=== PATIENT | male | born 1930 | race Caucasian/White ===

== ENCOUNTER 2017-01-28 21:09 | Inpatient (IN) | payer MEDICARE, MEDICAID ==
[~2017-01-28] VITALS: Ht 165.1 cm; Wt 51.7 kg
--- NOTE | 2017-01-28 21:22 | NUR ---
PT BB RA FROM HOME; SOB AND DISTENDED ABD X 3 DAYS. PT AOX4 RR EVEN AND UNLABORED. NO SOB NOTED. NAD NOTED. NO NVD AT THIS TIME. PT NOT DIAPHORETIC. PT GOWNED AND PLACED ON MONITOR. DR. WHITFIELD AT BEDSIDE FOR EVAL. PER RA PLACED IV ON LEFT FA 18G
[2017-01-28 21:25] LABS: BASOPHILS # (AUTO) 0.1 /CMM (0.0-0.2); BASOPHILS % (AUTO) 1.3 % (0.0-2.0); EOSINOPHILS % (AUTO) 0.3 % (0.0-6.0); HEMATOCRIT 31 % (39-51); HEMOGLOBIN 10.7 g/dL (13.5-17.5); LYMPHOCYTES # (AUTO) 0.4 /CMM (0.8-4.8); LYMPHOCYTES % (AUTO) 5.7 % (20.0-44.0); MEAN CORPUSCULAR HEMOGLOBIN 35 PG (26.0-33.0); MEAN CORPUSCULAR HGB CONC 34 g/dl (31.0-36.0); MEAN CORPUSCULAR VOLUME 103 fL (80-96); MONOCYTES # (AUTO) 0.4 /CMM (0.1-1.30); MONOCYTES % (AUTO) 5.3 % (2.0-12.0); NEUTROPHILS % (AUTO) 87.4 % (43.0-81.0); PLATELET COUNT (AUTO) 158 /CMM (150-450); RDW COEFFICIENT OF VARIATION 16.5 (11.5-15.0); RED BLOOD CELL COUNT(AUTO) 3.02 MIL/uL (4.5-6.0); WHITE BLOOD COUNT (AUTO) 6.9 K/uL (4.3-11.0)
--- NOTE | 2017-01-28 21:26 | NUR ---
XRAY AT BEDSIDE FOR EVAL.
[2017-01-28 21:38] LABS: INR 1.97 (0.87-1.13); PROTHROMBIN TIME 21.2 SECS (9.5-12.7)
[2017-01-28 21:43] LABS: TROPONIN I 0.139 ng/mL (0.00-0.056)
--- NOTE | 2017-01-28 21:46 | NUR ---
FAMILY AT BEDSIDE
[2017-01-28 21:47] LABS: ALANINE AMINOTRANSFERASE 22 U/L (12-78); ALBUMIN 4.1 g/dL (3.4-5.0); ALKALINE PHOSPHATASE 39 U/L (46-116); ASPARTATE AMINOTRANSFERASE 35 U/L (15-37); B-TYPE NATRIURETIC PEPTIDE 30354 PG/ML (0-125); BILIRUBIN,DIRECT 0.4 mg/dL (0.0-0.2); BILIRUBIN,TOTAL 1.1 mg/dL (0.2-1.0); CALCIUM, SERUM 10.8 mg/dL (8.5-10.1); CARBON DIOXIDE 29 mmol/L (21-32); CHLORIDE 89 mmol/L (98-107); CREATININE 2.5 mg/dL (0.6-1.3); GLUCOSE 115 mg/dL (74-106); SODIUM SERUM 123 mmol/L (136-145); TOTAL PROTEIN, SERUM 7.5 g/dL (6.4-8.2)
[2017-01-28 21:51] LABS: POTASSIUM 6.3 mmol/L (3.5-5.1); UREA NITROGEN, BLOOD 116 mg/dL (7-18)
--- NOTE | 2017-01-28 22:08 | NUR ---
DR. COREAS AT BEDSIDE FOR EVAL.
--- NOTE | 2017-01-28 22:15 | NUR ---
PAGED DR BRITO FOR PANEL ADMISSION
[2017-01-28] MEDS ORDERED: ASPIRIN 325 MG TABLET ONE (22:17)
[2017-01-28] MEDS ORDERED: SODIUM POLYSTYRENE SULFONATE 15 G/60 ML BOTTLE ONE (22:17)
[2017-01-28] MEDS ORDERED: CALCIUM CHLORIDE 1,000 MG/10 ML DISP.SYRIN ONE (22:18)
[2017-01-28] MEDS ORDERED: INSULIN REGULAR, HUMAN 100 UNIT/ML 10 ML VIAL ONE (22:19)
[2017-01-28] MEDS ORDERED: DEXTROSE 50%-WATER 50 ML DISP.SYRIN ONE (22:19)
--- NOTE | 2017-01-28 22:20 | NUR ---
CALLED NURSING SCIENTIFIC MANAGER FOR TELE BED
[2017-01-28] MEDS ORDERED: SODIUM BICARBONATE SYR 50 MEQ/50 ML DISP.SYRIN ONE (22:27)
[2017-01-28] MEDS ORDERED: SODIUM POLYSTYRENE SULFONATE 15 G/60 ML BOTTLE PO ONE (22:30)
[2017-01-28] MEDS ORDERED: DEXTROSE 50%-WATER 50 ML DISP.SYRIN IV ONE (22:30)
[2017-01-28] MEDS ORDERED: ASPIRIN 325 MG TABLET PO ONE (22:30)
[2017-01-28] MEDS ORDERED: CALCIUM CHLORIDE 1,000 MG/10 ML DISP.SYRIN IV ONE (22:30)
[2017-01-28] MEDS ORDERED: ALBUTEROL FS 2.5 MG/3 ML VIAL.NEB NEB ONE (22:30)
[2017-01-28] MEDS ORDERED: FUROSEMIDE 40 MG/4 ML VIAL IV ONE (22:30)
[2017-01-28] MEDS ORDERED: SODIUM BICARBONATE SYR 50 MEQ/50 ML DISP.SYRIN IV ONE (22:30)
[2017-01-28] MEDS ORDERED: INSULIN REGULAR, HUMAN 100 UNIT/ML 10 ML VIAL IV ONE (22:30)
[2017-01-28] MEDS ORDERED: FUROSEMIDE 40 MG/4 ML VIAL ONE (22:34)
--- NOTE | 2017-01-28 22:35 | NUR ---
Regular Insulin 5 units IV verified with Bill ETIENNE.
[2017-01-28] MEDS ORDERED: MAGNESIUM HYDROXIDE 30 ML UDC PO PRN (23:00)
[2017-01-28] MEDS ORDERED: ACETAMINOPHEN 325 MG TABLET PO PRN (23:00)
[2017-01-28] MEDS ORDERED: HYDROCODONE/APAP 5/325MG 1 EACH TABLET PO PRN (23:00)
[2017-01-28] MEDS ORDERED: Z GUARD REMEDY 2 OZ OINT TP PRN (23:00)
[2017-01-28] MEDS ORDERED: ONDANSETRON HCL/PF 4 MG/2 ML VIAL IVP PRN (23:00)
[2017-01-28] MEDS ORDERED: MAG HYDROX/AL HYDROX/SIMETH 30 ML UDC PO PRN (23:00)
--- NOTE | 2017-01-28 23:02 | NUR ---
REPORT GIVEN TO JAIMIE PADILLA FOR TELE BED 324
[2017-01-28] MEDS ORDERED: ALBUTEROL FS 2.5 MG/3 ML VIAL.NEB ONE (23:10)
--- NOTE | 2017-01-28 23:18 | NUR ---
RT AT BEDSIDE FOR BREATHING TX.
--- NOTE | 2017-01-29 00:05 | NUR ---
MS-RN: ADMISSION NOTES RECEIVED PT FROM ER VIA HOSPITAL BED. NO S/S OR COMPLAINTS OF PAIN AT THIS TIME. PATIENT IS DISPLAYING NO S/S OF APPARENT DISTRESS AT THIS TIME. PATIENT BREATHING IS EVEN AND UNLABORED. NO SOB. PATIENT IS ALERT AND ORIENTED X4. IV ON LEFT FOREARM #18 PATENT AND INTACT. FLUSHING WELL WITH NO S/S OF INFILTRATION. PATIENT BELONGINGS LIST, AND SKIN ASSESSMENT HAS BEEN COMPLETED. PATIENT ORIENTED TO ROOM, FLOOR AND STAFF ALL QUESTIONS ANSWERED. PATIENT EDUCATED ON THE USE OF THE CALL LIGHT. PATIENT BED IN LOW AND LOCKED POSITION, SIDERAILS UPX2, CALL LIGHT WITHIN REACH. WILL CONTINUE TO MONITOR FOR SAFETY.
[2017-01-29] MEDS ORDERED: HYDROCODONE/APAP 5/325MG 1 EACH TABLET ONE (00:51)
[2017-01-29] MEDS ORDERED: ZOLPIDEM TARTRATE 5 MG TABLET ONE (02:11)
[2017-01-29] MEDS: ZOLPIDEM TARTRATE 5 MG TABLET PO PRN (02:17)
[2017-01-29 02:58] VITALS: BP 117/61
[2017-01-29 03:48] LABS: EOSINOPHILS % (AUTO) 0.2 % (0.0-6.0); HEMATOCRIT 31 % (39-51); HEMOGLOBIN 10.6 g/dL (13.5-17.5); LYMPHOCYTES # (AUTO) 0.3 /CMM (0.8-4.8); LYMPHOCYTES % (AUTO) 5.2 % (20.0-44.0); MEAN CORPUSCULAR HEMOGLOBIN 36 PG (26.0-33.0); MEAN CORPUSCULAR HGB CONC 34 g/dl (31.0-36.0); MEAN CORPUSCULAR VOLUME 104 fL (80-96); MONOCYTES # (AUTO) 0.4 /CMM (0.1-1.30); MONOCYTES % (AUTO) 6.1 % (2.0-12.0); NEUTROPHILS # (AUTO) 5.5 /CMM (1.8-8.9); NEUTROPHILS % (AUTO) 88.5 % (43.0-81.0); PLATELET COUNT (AUTO) 150 /CMM (150-450); RED BLOOD CELL COUNT(AUTO) 2.97 MIL/uL (4.5-6.0); WHITE BLOOD COUNT (AUTO) 6.2 K/uL (4.3-11.0)
[2017-01-29 04:02] LABS: CARBON DIOXIDE 32 mmol/L (21-32); CHLORIDE 90 mmol/L (98-107); CREATININE 2.6 mg/dL (0.6-1.3); GLUCOSE 108 mg/dL (74-106); MAGNESIUM 3.3 mg/dL (1.8-2.4); PHOSPHORUS 4.3 mg/dL (2.5-4.9); POTASSIUM 5.3 mmol/L (3.5-5.1); SODIUM SERUM 129 mmol/L (136-145)
[2017-01-29 04:05] LABS: UREA NITROGEN, BLOOD 112 mg/dL (7-18)
[2017-01-29 04:30] LABS: INR 1.89 (0.87-1.13); PROTHROMBIN TIME 21.1 SECS (9.5-12.7)
[2017-01-29] MEDS ORDERED: NITROGLYCERIN PACKET 1 GM PACKET ONE (05:07)
[2017-01-29] MEDS: NITROGLYCERIN PACKET 1 GM PACKET TOP SCH ×3 (05:26→21:00)
--- NOTE | 2017-01-29 06:20 | NUR ---
TELE CLOSING NOTES. PT IN ROOM. LAYING IN BED. AWAKE. RESPIRATION EVEN AND UNLABORED. NOT IN RESPIRATORY DISTRESS. NO COMPLAIN OF PAIN AT THIS TIME. NO SOB. RIGHT FOREARM #18G PATENT AND INTACT. FLUSHING WELL. KEPT CLEAN AND DRY AT ALL TIMES. BED IN LOW AND LOCKED POSITION. SIDERAILS UPX2. CALL LIGHT WITHIN REACH. WILL ENDORSE TO NEXT SHIFT NURSE FOR CONTINUITY OF CARE.
--- NOTE | 2017-01-29 07:23 | NUR ---
SUPERVISOR DRYING AND WINDING OPEN NOTES RECEIVED REPORT FROM RADIO BROADCASTER NURSE. PATIENT IS V-PACING 66 ON THE MONITOR. WILL CONTINUE TO MONITOR AND ASSESS PATIENT THROUGHOUT MY SHIFT.
[2017-01-29 08:00] VITALS: BP_SYST 103; BP_SYST 148; BP_DIAS 54; BP_DIAS 83
[2017-01-29] MEDS: PANTOPRAZOLE 40 MG TABLET.DR PO SCH (08:26)
[2017-01-29] MEDS: METOPROLOL TARTRATE 25 MG TABLET PO SCH ×2 (08:31→17:00)
[2017-01-29] MEDS ORDERED: ASPIRIN 81 MG TAB.CHEW PO SCH (09:00)
[2017-01-29 10:22] LABS: THYROID STIMULATING HORMONE 5.822 uIU/mL (0.358-3.74)
[2017-01-29 10:48] LABS: TROPONIN I 0.171 ng/mL (0.00-0.056)
--- NOTE | 2017-01-29 10:48 | NUR ---
WOUND CARE CONSULT: PT HAVING PROCEDURE AT THIS TIME. WILL SEE PT FOR SKIN ASSESSMENT PT CONDITION PERMITS.
--- NOTE | 2017-01-29 11:08 | NUR ---
WOUND CARE CONSULT: PT PRESENTS WITH RT ARM SKIN TEAR AND LEFT LOWER LEG SKIN TEAR, PRESENT ON ADMISSION. MARSHALL SCORE IS 21. PT IS AMBULATORY AND CONTINENT. DSICUSSED WOUND CARE AND SKIN PROTECTION WITH NURSING STAFF. WILL SEE PRN. GUERRERO IN AGREEMENT WITH PLAN OF CARE. Addendum: 01/29/17 at 1109 by ELLIOTT GONZALES WNDNU Amended: Links added.
[2017-01-29] MEDS ORDERED: POTA20TA83 PO (11:15)
[2017-01-29] MEDS ORDERED: AMIO200T2 PO (11:15)
[2017-01-29] MEDS ORDERED: LEVO50TA40 PO (11:15)
[2017-01-29] MEDS ORDERED: WARF2.5T47 PO (11:15)
[2017-01-29] MEDS ORDERED: ATOR40TA PO (11:15)
[2017-01-29] MEDS ORDERED: MULT-24 PO (11:15)
[2017-01-29] MEDS ORDERED: TRAM50TA2 PO (11:15)
[2017-01-29] MEDS ORDERED: FERR-58 PO (11:15)
[2017-01-29] MEDS ORDERED: SPIR25TA4 PO (11:15)
[2017-01-29] MEDS ORDERED: ISOS30TA6 PO (11:15)
[2017-01-29] MEDS ORDERED: FURO40TA5 PO (11:15)
[2017-01-29] MEDS ORDERED: HYDROGEL DRESSING 90 GM TUBE TP PRN (11:30)
[2017-01-29] MEDS: HYDROGEL DRESSING 90 GM TUBE TP SCH (12:28)
[2017-01-29] MEDS ORDERED: IV SET PRIMARY PUMP SET 1 EA INFUS.SET MC ONE (14:07)
[2017-01-29] MEDS: IV NS 0.9% 1,000 ML IV PRN (14:29)
[2017-01-29 16:57] LABS: APPEARANCE,URINE CLEAR (CLEAR); BILIRUBIN,URINE NEGATIVE (NEGATIVE); BLOOD, URINE TRACE-INTA Ery/uL (NEGATIVE); COLOR,URINE YELLOW (YELLOW); KETONES,URINE NEGATIVE (NEGATIVE); LEUKOCYTE ESTERASE ,URINE NEGATIVE (NEGATIVE); NITRITE, URINE NEGATIVE (NEGATIVE); PH,URINE 6.5 (5.0-8.0); PROTEIN,URINE NEGATIVE (NEGATIVE); UGLUCOSE NEGATIVE (NEGATIVE); UROBILINOGEN,URINE 0.2 EU/dL (0.2)
[2017-01-29 17:41] LABS: CREATININE, URINE 29.4 MG/DL (30.0-125.0); URINE TOTAL PROTEIN 16.2 mg/dL (0-11.9)
[2017-01-29 18:10] LABS: BACTERIA,URINE None seen /HPF (None Seen); RBC,URINE 0-2 /HPF (0-2); SQUAMOUS EPITHELIAL CELL,UR None Seen /HPF (None Seen); WBC,URINE 0-2 /HPF (0-3)
--- NOTE | 2017-01-29 18:43 | NUR ---
RN CLOSING NOTES PATIENT IS IN BED, ALERT AND ORIENTED X4. IS AT BEDSIDE. ALL NEEDS ANTICIPATED. PATIENT KEPT CLEAN AND DRY. IV SITE IS INTACT AND PATENT. BED IS IN LOW POSITION, WHEELS ARE LOCKED AND TWO SIDE RAILS ARE UP. WOUND DRESSING CHANGED. NO SIGNS AND SYMPTOMS OF DISTRESS. DENIED PAIN. DENIED PAIN. WILL ENDORSE TO QUILL CLEANER NURSE
--- NOTE | 2017-01-29 19:00 | NUR ---
RN NOTE PT RESTING IN BED WITH EYES CLOSED. NO S/S OF ANY DISTRESS AT THIS TIME. BREATHING NON-LABORED AND EVEN. IV INTACT AND PATENT. BED ALARM ON. IV INACT AND PATENT WILL MONITOR.
[2017-01-29 19:54] LABS: EOSINOPHIL,URINE None Seen
[2017-01-30] MEDS: NITROGLYCERIN PACKET 1 GM PACKET TOP SCH ×3 (05:00→20:45)
[2017-01-30 06:29] LABS: BASOPHILS % (AUTO) 0.3 % (0.0-2.0); EOSINOPHILS % (AUTO) 0.9 % (0.0-6.0); HEMATOCRIT 28 % (39-51); HEMOGLOBIN 9.4 g/dL (13.5-17.5); LYMPHOCYTES # (AUTO) 0.4 /CMM (0.8-4.8); LYMPHOCYTES % (AUTO) 8.7 % (20.0-44.0); MEAN CORPUSCULAR HEMOGLOBIN 35 PG (26.0-33.0); MEAN CORPUSCULAR HGB CONC 34 g/dl (31.0-36.0); MEAN CORPUSCULAR VOLUME 103 fL (80-96); MONOCYTES # (AUTO) 0.3 /CMM (0.1-1.30); MONOCYTES % (AUTO) 7.4 % (2.0-12.0); NEUTROPHILS # (AUTO) 3.6 /CMM (1.8-8.9); NEUTROPHILS % (AUTO) 82.7 % (43.0-81.0); PLATELET COUNT (AUTO) 115 /CMM (150-450); WHITE BLOOD COUNT (AUTO) 4.4 K/uL (4.3-11.0)
--- NOTE | 2017-01-30 06:36 | NUR ---
RN NOTE NO SIGNIFICANT CHANGES AT NIGHT. PT RESTING IN BED WITH EYES CLOSED. NO S/S OF ANY PAIN/DISCOMFORT AT THIS TIME. BREATHING NON-LABORED AND EVEN. IV INTACT AND PATENT TOLERATING FLUIDS WELL. ON FLUIDS RESTRICTIONS - DRANK 175 CC OF WATER SINCE 01/29 1900. 1:1 SITTER AT BEDSIDE. WILL F/U WITH DAY SHIFT FOR LG
[2017-01-30] MEDS: IV NS 0.9% 1,000 ML IV PRN (06:48)
[2017-01-30 06:57] LABS: ALANINE AMINOTRANSFERASE 28 U/L (12-78); ALBUMIN 3.4 g/dL (3.4-5.0); ALKALINE PHOSPHATASE 36 U/L (46-116); ASPARTATE AMINOTRANSFERASE 39 U/L (15-37); BILIRUBIN,TOTAL 0.8 mg/dL (0.2-1.0); CALCIUM, SERUM 9.5 mg/dL (8.5-10.1); CARBON DIOXIDE 31 mmol/L (21-32); CHLORIDE 93 mmol/L (98-107); CREATINE KINASE, TOTAL 68 U/L (39-308); CREATININE 2.1 mg/dL (0.6-1.3); GLUCOSE 88 mg/dL (74-106); MAGNESIUM 2.5 mg/dL (1.8-2.4); PHOSPHORUS 3.4 mg/dL (2.5-4.9); SODIUM SERUM 131 mmol/L (136-145); TOTAL PROTEIN, SERUM 6.1 g/dL (6.4-8.2)
[2017-01-30 07:06] LABS: TROPONIN I 0.114 ng/mL (0.00-0.056)
[2017-01-30 07:14] LABS: UREA NITROGEN, BLOOD 95 mg/dL (7-18)
--- NOTE | 2017-01-30 07:30 | NUR ---
RN OPEN NOTES RECEIVED REPORT FROM PRODUCTION ADMINISTRATOR NURSE. PATIENT IS IN BED, WITH HIS EYES CLOSED. AWAKEN TO NAME AND LIGHT TOUCH. BED IN LOW POSITION, LOCKED AND 2 SIDE RAILS ARE UP. WILL CONTINUE TO MONITOR AND ASSESS PATIENT THROUGH OUT MY SHIFT.
[2017-01-30 07:44] LABS: BILIRUBIN,URINE NEGATIVE (NEGATIVE); BLOOD, URINE TRACE-INTA Ery/uL (NEGATIVE); COLOR,URINE YELLOW (YELLOW); KETONES,URINE NEGATIVE (NEGATIVE); LEUKOCYTE ESTERASE ,URINE NEGATIVE (NEGATIVE); NITRITE, URINE NEGATIVE (NEGATIVE); PROTEIN,URINE NEGATIVE (NEGATIVE); UGLUCOSE NEGATIVE (NEGATIVE); UROBILINOGEN,URINE 0.2 EU/dL (0.2)
[2017-01-30 07:46] LABS: APPEARANCE,URINE CLEAR (CLEAR)
[2017-01-30 07:47] LABS: BACTERIA,URINE None seen /HPF (None Seen); RBC,URINE 0-2 /HPF (0-2); SPERM,URINE Rare /HPF (None Seen); SQUAMOUS EPITHELIAL CELL,UR 0-2 /HPF (None Seen); URINE AMORPHOUS URATE Rare /HPF (None Seen); WBC,URINE 0-2 /HPF (0-3)
[2017-01-30 08:00] VITALS: BP 97/58
[2017-01-30 08:54] LABS: CREATININE, URINE 36.8 MG/DL (30.0-125.0); URINE SODIUM, RANDOM < 5 mmol/l (40-220); URINE TOTAL PROTEIN 11.5 mg/dL (0-11.9)
[2017-01-30] MEDS: METOPROLOL TARTRATE 25 MG TABLET PO SCH ×2 (09:00→17:00)
[2017-01-30 09:53] LABS: EOSINOPHIL,URINE None Seen
[2017-01-30] MEDS: PANTOPRAZOLE 40 MG TABLET.DR PO SCH (09:55)
[2017-01-30] MEDS: HYDROGEL DRESSING 90 GM TUBE TP SCH (09:57)
--- NOTE | 2017-01-30 11:00 | NUR ---
DRESSING CHANGE COMPLETED BY DR HERNÁNDEZ
[2017-01-30] MEDS ORDERED: POLYETHYLENE GLYCOL 3350 17 GM POWD.PACK PO PRN (13:30)
[2017-01-30] MEDS ORDERED: EPOETIN ALFA (10,000 UNIT) 10,000 UNIT/ML VIAL SQ ONE (14:00)
[2017-01-30 15:58] VITALS: BP 100/54
[2017-01-30 17:21] LABS: INR 1.87 (0.87-1.13); PROTHROMBIN TIME 20.8 SECS (9.5-12.7)
[2017-01-30] MEDS: WARFARIN SODIUM 2.5 MG TABLET PO SCH (17:37)
--- NOTE | 2017-01-30 18:55 | NUR ---
RN CLOSING NOTES PATIENT IS IN BED, ALERT AND ORIENTED TO NAME, PLACE AND TIME. BED IN LOW POSITION, LOCKED AND 2 SIDE RAILS ARE UP. PATIENT KEPT CLEAN AND DRY. DRESSING CHANGED. ALL NEEDS ANTICIPATED. NO SIGNS AND SYMPTOMS OF DISTRESS. DENIED PAIN. CONSENT FOR PARACENTESIS SIGNED AND PLACED IN THE CHART. WILL ENDORSE TO FREIGHT ELEVATOR OPERATOR NURSE.
--- NOTE | 2017-01-30 19:10 | NUR ---
MS RN OPENING NOTES: RECEIVED PT IN BED WITH SITTER AT BEDSIDE. PT IS AWAKE AND A/O X4. PT IS ON 2LPM VIA NC AND IS TOLERATING WELL. PT WAS INFORMED THAT HE IS ON FLUID RESTRICTION AND HAS ONLY 2 CUPS LEFT. PT HAS L FOREARM 18G AND IS ON HEP LOCK. NO SIGNS OR SYMPTOMS OF DISTRESS NOTED AT THIS TIME. CALL LIGHT WITHIN PT'S REACH. BED KEPT IN LOCKED, LOWEST POSITION, AND SIDE RAILS X 2 UP. WILL CONTINUE TO MONITOR PT.
[2017-01-30 20:00] VITALS: BP 94/55
[2017-01-30] MEDS: ZOLPIDEM TARTRATE 5 MG TABLET PO PRN (21:22)
--- NOTE | 2017-01-30 21:22 | NUR ---
MS RN NOTES: PT REQUESTED FOR HIS SLEEPING PILL. PT WAS ADMINISTERED AMBIEN 5MG PO. WILL CONTINUE TO MONITOR PT.
[2017-01-31] MEDS: NITROGLYCERIN PACKET 1 GM PACKET TOP SCH ×3 (04:21→20:41)
[2017-01-31 07:01] LABS: BASOPHILS % (AUTO) 0.1 % (0.0-2.0); HEMATOCRIT 28 % (39-51); HEMOGLOBIN 9.6 g/dL (13.5-17.5); LYMPHOCYTES # (AUTO) 0.4 /CMM (0.8-4.8); LYMPHOCYTES % (AUTO) 7.1 % (20.0-44.0); MEAN CORPUSCULAR HEMOGLOBIN 35 PG (26.0-33.0); MEAN CORPUSCULAR HGB CONC 34 g/dl (31.0-36.0); MEAN CORPUSCULAR VOLUME 103 fL (80-96); MONOCYTES # (AUTO) 0.4 /CMM (0.1-1.30); MONOCYTES % (AUTO) 7.5 % (2.0-12.0); NEUTROPHILS # (AUTO) 4.4 /CMM (1.8-8.9); NEUTROPHILS % (AUTO) 85.3 % (43.0-81.0); PLATELET COUNT (AUTO) 113 /CMM (150-450); RED BLOOD CELL COUNT(AUTO) 2.73 MIL/uL (4.5-6.0); WHITE BLOOD COUNT (AUTO) 5.2 K/uL (4.3-11.0)
--- NOTE | 2017-01-31 07:20 | NUR ---
MS RN CLOSING NOTES: ALL NEEDS WERE ATTENDED AND ANTICIPATED FOR. PT IS ON 2LPM VIA NC AND IS TOLERATING WELL. PT HAS IV ON L FOREARM 18G AND IS PATENT AND INTACT. CURRENTLY ON HEP LOCK. PT IS NO SIGNS OR SYMPTOMS OF DISTRESS. CALL LIGHT WITHIN PT'S REACH. BED KEPT IN LOCKED, LOWEST POSITION, AND SIDE RAILS X 2 UP. ENDORSED TO AM NURSE FOR LG.
--- NOTE | 2017-01-31 07:35 | NUR ---
RN OPEN NOTES RECEIVED REPORT FROM MATTRESS AND BOXSPRINGS SUPERVISOR NURSE. PATIENT IS IN BED, ALERT AND ORIENTED TO NAME, TIME AND PLACE. NO SIGNS AND SYMPTOMS OF DISTRESS. DENIED PAIN. OXYGEN SAT AT 99% ON A 2L NC. SITTER 1:1 AT BEDSIDE FOR SAFETY. BED IS IN LOW POSITION, LOCKED AND TWO SIDE RAILS ARE UP. PARACENTESIS PROCEDURE IS PENDING, CALLED RADIOLOGY TO CHECK THE STATUS OF THE PROCEDURE BUT HEALTHCARE OR MEDICAL WILL BE AVAILABLE AFTER 9:30AM, WILL CALL BACK. WILL CONTINUE TO ASSESS AND MONITOR PATIENT THROUGH OUT MY SHIFT
[2017-01-31 08:03] VITALS: BP 99/57
[2017-01-31 08:03] LABS: ALANINE AMINOTRANSFERASE 28 U/L (12-78); ALBUMIN 3.4 g/dL (3.4-5.0); ALKALINE PHOSPHATASE 34 U/L (46-116); ASPARTATE AMINOTRANSFERASE 35 U/L (15-37); BILIRUBIN,TOTAL 0.8 mg/dL (0.2-1.0); CALCIUM, SERUM 9.7 mg/dL (8.5-10.1); CARBON DIOXIDE 32 mmol/L (21-32); CHLORIDE 90 mmol/L (98-107); GLUCOSE 90 mg/dL (74-106); MAGNESIUM 2.3 mg/dL (1.8-2.4); PHOSPHORUS 3.2 mg/dL (2.5-4.9); POTASSIUM 4.1 mmol/L (3.5-5.1); SODIUM SERUM 127 mmol/L (136-145); TOTAL PROTEIN, SERUM 6.2 g/dL (6.4-8.2)
[2017-01-31 08:23] LABS: INR 1.65 (0.87-1.13); PROTHROMBIN TIME 18.2 SECS (9.5-12.7)
[2017-01-31] MEDS: PANTOPRAZOLE 40 MG TABLET.DR PO SCH (08:42)
[2017-01-31] MEDS: METOPROLOL TARTRATE 25 MG TABLET PO SCH ×2 (08:42→16:07)
[2017-01-31] MEDS: HYDROGEL DRESSING 90 GM TUBE TP SCH (08:43)
[2017-01-31 08:46] LABS: UREA NITROGEN, BLOOD 81 mg/dL (7-18)
[2017-01-31] MEDS ORDERED: BISACODYL SUPP (10 MG) 10 MG/SUPP.RECT SUPP.RECT RC PRN (15:30)
[2017-01-31] MEDS: WARFARIN SODIUM 2.5 MG TABLET PO SCH (16:07)
--- NOTE | 2017-01-31 16:08 | NUR ---
PER DR HERNÁNDEZ, HOLD COUMADIN DUE TO PARACENTESIS ON 02/01 AM
[2017-01-31 16:13] VITALS: BP 102/57
--- NOTE | 2017-01-31 18:45 | NUR ---
RN CLOSING NOTES PATIENT IS IN BED, ALERT AND ORIENTED TO NAME, PLACE AND TIME. PATIENT'S AT BEDSIDE. PATIENT OXYGEN SATURATION IS FLUCTUATING TO THE LOW 70%, PATIENT REMINDED TO TAKE DEEP BREATH AND THE OXYGEN WENT BACK TO ABOVE 92%. DR HERNÁNDEZ MADE AWARE. PARACENTESIS TOMORROW IN AM TO REMOVE FLUID FROM THE ABDOMEN DUE TO ASCITES. PARACENTESIS WILL BE PERFORMED BY DR HERNÁNDEZ. BED IN LOW POSITION, LOCKED AND TWO SIDE RAILS ARE UP. WILL ENDORSE TO CHARGING CRANE OPERATOR NURSE.
--- NOTE | 2017-01-31 19:05 | NUR ---
MS RN OPENING NOTES: RECEIVED PT IN BED AND WITH FAMILY MEMBERS AT BEDSIDE. PT IS A/O X 4. PT WAS INFORMED THAT HE ONLY HAS 500ML LEFT OF FLUID INTAKE D/T FLUID RESTRICTION. PT IS ON 2LPM VIA NC AND IS REMINDED TO BREATHE THROUGH HIS NOSE. PT HAS L FOREARM 18G AND IS ON HEP LOCK. IV IS PATENT AND INTACT. CALL LIGHT WITHIN PT'S REACH. SITTER AT BEDSIDE. NO SIGNS OR SYMPTOMS OF DISTRESS NOTED AT THIS TIME. WILL CONTINUE TO MONITOR PT.
[2017-01-31 20:00] VITALS: BP_SYST 126; BP_SYST 98; BP_DIAS 55; BP_DIAS 58
[2017-01-31] MEDS: ZOLPIDEM TARTRATE 5 MG TABLET PO PRN (21:35)
[2017-02-01] MEDS: NITROGLYCERIN PACKET 1 GM PACKET TOP SCH ×3 (05:00→20:26)
--- NOTE | 2017-02-01 05:35 | NUR ---
MS RN OPENING NOTES: PT ASKED FOR HIS IV ON HIS L FOREARM #18G TO BE REMOVED D/T ITCHING. OFFERED PT TO START ANOTHER IV. PT DECLINED AT THIS TIME.
[2017-02-01 06:32] LABS: CALCIUM, SERUM 10.1 mg/dL (8.5-10.1); CARBON DIOXIDE 31 mmol/L (21-32); CHLORIDE 90 mmol/L (98-107); CREATININE 1.9 mg/dL (0.6-1.3); GLUCOSE 105 mg/dL (74-106); MAGNESIUM 2.6 mg/dL (1.8-2.4); PHOSPHORUS 2.8 mg/dL (2.5-4.9); POTASSIUM 4.9 mmol/L (3.5-5.1); SODIUM SERUM 126 mmol/L (136-145); UREA NITROGEN, BLOOD 70 mg/dL (7-18)
[2017-02-01 06:34] LABS: EOSINOPHILS % (AUTO) 0.8 % (0.0-6.0); HEMATOCRIT 30 % (39-51); HEMOGLOBIN 10.1 g/dL (13.5-17.5); LYMPHOCYTES # (AUTO) 0.4 /CMM (0.8-4.8); LYMPHOCYTES % (AUTO) 6.7 % (20.0-44.0); MEAN CORPUSCULAR HEMOGLOBIN 35 PG (26.0-33.0); MEAN CORPUSCULAR HGB CONC 34 g/dl (31.0-36.0); MEAN CORPUSCULAR VOLUME 104 fL (80-96); MONOCYTES # (AUTO) 0.4 /CMM (0.1-1.30); MONOCYTES % (AUTO) 6.8 % (2.0-12.0); NEUTROPHILS # (AUTO) 5.1 /CMM (1.8-8.9); NEUTROPHILS % (AUTO) 85.7 % (43.0-81.0); PLATELET COUNT (AUTO) 118 /CMM (150-450); RDW COEFFICIENT OF VARIATION 17.5 (11.5-15.0); RED BLOOD CELL COUNT(AUTO) 2.87 MIL/uL (4.5-6.0)
--- NOTE | 2017-02-01 07:25 | NUR ---
MS RN CLOSING NOTES: ALL NEEDS WERE ATTENDED AND ANTICIPATED FOR. PT IS ON 2LPM VIA NC AND IS TOLERATING WELL. PT IS ASLEEP AT THE MOMENT. PT SHOWS NO SIGNS OR SYMPTOMS OF DISTRESS. CALL LIGHT WITHIN PT'S REACH. BED KEPT IN LOCKED, LOWEST POSITION, AND SIDE RAILS X 2 UP. SITTER AT BEDSIDE. ENDORSED TO AM NURSE FOR LG.
--- NOTE | 2017-02-01 07:41 | NUR ---
RN OPENING NOTES RECEIVED PATIENT IN BED, AWAKE, HOB ELEVATED, NO SOB OR DISTRESS NOTED. ON O2 AT 2LPM VIA NC AND TOLERATED WELL. A/O X4, VERBALLY RESPONSIVE AND ABLE TO MAKE NEEDS KNOWN. NO IV ON PLACE. KEPT PATIENT CLEAN AND COMFORTABLE IN BED, CALL LIGHT WITHIN PATIENT REACH, WILL CONTINUE TO MONITOR ACCORDINGLY.
[2017-02-01 08:00] VITALS: BP 102/52
[2017-02-01] MEDS: PANTOPRAZOLE 40 MG TABLET.DR PO SCH (08:33)
[2017-02-01] MEDS: HYDROGEL DRESSING 90 GM TUBE TP SCH (08:34)
[2017-02-01] MEDS: METOPROLOL TARTRATE 25 MG TABLET PO SCH ×2 (08:34→17:00)
[2017-02-01 10:37] LABS: ALBUMIN 3.5 g/dL (3.4-5.0); BILIRUBIN,DIRECT 0.4 mg/dL (0.0-0.2); TOTAL PROTEIN, SERUM 6.6 g/dL (6.4-8.2)
--- NOTE | 2017-02-01 11:05 | NUR ---
RN NOTES PATIENT DO NOT HAVE AN IV, DR. REEVES AWARE AND HE SAID TO KEEP HIM WITHOUT IV.
--- NOTE | 2017-02-01 12:27 | NUR ---
ULTRASOUND GUIDED PARACENTESIS ON HOLD PATIENT WAS GIVEN COUMADIN ON 01/30/17, MUST HOLD FOR 3 DAYS PRIOR TO PROCEDURE. JAIMIE BANG WAS NOTIFIED AT [id number]
--- NOTE | 2017-02-01 12:35 | NUR ---
RN NOTES PARACENTESIS CANCELLED BECAUSE PATIENT'S COUMADIN LAST DOSE WAS ON 01/30/17. POSSIBLE PARACENTESIS TOMORROW. PATIENT AND DAUGHTER AWARE.
[2017-02-01 15:14] LABS: *SPE A/G RATIO 1.6 (0.7-1.7); *SPE ALBUMIN 3.6 g/dL (2.9-4.4); *SPE ALPHA-1-GLOBULIN 0.3 g/dL (0.0-0.4); *SPE ALPHA-2-GLOBULIN 0.5 g/dL (0.4-1.0); *SPE BETA GLOBULIN 0.7 g/dL (0.7-1.3); *SPE GLOBULIN, TOTAL 2.2 g/dL (2.2-3.9); *SPE M-SPIKE Not Observed g/dL (Not Observed); *SPE PROTEIN TOTAL 5.8 g/dL (6.0-8.5); *SPEGAMMA GLOBULIN 0.7 g/dL (0.4-1.8)
[2017-02-01 16:00] VITALS: BP 101/58
[2017-02-01] MEDS: WARFARIN SODIUM 2.5 MG TABLET PO SCH (17:00)
--- NOTE | 2017-02-01 19:20 | NUR ---
RN CLOSING NOTES ALL NEEDS PROVIDED, ATTENDED, AND ANTICIPATED. KEPT PATIENT CLEAN AND COMFORTABLE IN BED. CALL LIGHT WITHIN PATIENT REACH, WILL CONTINUE TO MONITOR ACCORDINGLY. ENDORSED TO NEXT SHIFT RN TO CONTINUE CARE
--- NOTE | 2017-02-01 20:00 | NUR ---
RN OPENING NOTES RECEIVED PATIENT IN BED, AWAKE, HOB ELEVATED. PATIENT STATES HE FEELS VERY SHORT OF BREATH. O2 SAT AT THIS TIME 78%. PLACED PATIENT ON NON-REBREATHER AND NOTIFIED RT AND MD BUSINESS SPECIALIST. WAITNG FOR CALL BACK FROM MD. PT. VERBALLY RESPONSIVE AND ABLE TO MAKE NEEDS KNOWN. KEPT PATIENT CLEAN AND COMFORTABLE IN BED, CALL LIGHT WITHIN PATIENT REACH, WILL CONTINUE TO MONITOR ACCORDINGLY.
--- NOTE | 2017-02-01 20:30 | NUR ---
MS RN NOTE CALLED MD PYTHON ENGINEER AGAIN. WAITING FOR CALL BACK. RT PLACED PORTABLE PULSE OX. MACHINE AT BEDSIDE. READING 98% RIGHT NOW ON 15L VIA NON-REBREATHER. PLACED TELE MONITOR ON PATIENT TO OBSERVE READING. NSR AT THIS TIME. HOB ELEVATED. PATIENT STABLE.
[2017-02-01] MEDS ORDERED: IV SET PRIMARY 1 EA INFUS.SET MC ONE (20:42)
[2017-02-01] MEDS ORDERED: FUROSEMIDE 40 MG/4 ML VIAL ONE (21:16)
--- NOTE | 2017-02-01 21:20 | NUR ---
MS RN NOTE RECEIVED NEW ORDERS FROM FOR A ONE TIME DOSE OF LASIX 40MG IVP. ORDERS CARRIED OUT. WILL CONTINUE TO MONITOR.
[2017-02-01] MEDS ORDERED: FUROSEMIDE 40 MG/4 ML VIAL IV SCH (21:30)
--- NOTE | 2017-02-01 21:30 | NUR ---
MS RN NOTE #20 IV PLACED TO [place]. ADMINISTERED LASIX ORDERED. PT. TOLERATED WELL. WILL CONTINUE TO MONITOR.
[2017-02-01 22:00] VITALS: BP 101/63
[2017-02-02] MEDS: NITROGLYCERIN PACKET 1 GM PACKET TOP SCH (05:00)
--- NOTE | 2017-02-02 06:50 | NUR ---
MS RN NOTE PATIENT STABLE. WILL ENDORSE TO DAY SHIFT FOR LG.
[2017-02-02 07:35] LABS: EOSINOPHILS % (AUTO) 0.1 % (0.0-6.0); HEMATOCRIT 30 % (39-51); HEMOGLOBIN 10.3 g/dL (13.5-17.5); LYMPHOCYTES # (AUTO) 0.3 /CMM (0.8-4.8); LYMPHOCYTES % (AUTO) 5.4 % (20.0-44.0); MEAN CORPUSCULAR HEMOGLOBIN 36 PG (26.0-33.0); MEAN CORPUSCULAR HGB CONC 35 g/dl (31.0-36.0); MEAN CORPUSCULAR VOLUME 104 fL (80-96); MONOCYTES # (AUTO) 0.3 /CMM (0.1-1.30); MONOCYTES % (AUTO) 4.9 % (2.0-12.0); NEUTROPHILS # (AUTO) 5.7 /CMM (1.8-8.9); NEUTROPHILS % (AUTO) 89.6 % (43.0-81.0); PLATELET COUNT (AUTO) 119 /CMM (150-450); RED BLOOD CELL COUNT(AUTO) 2.85 MIL/uL (4.5-6.0); WHITE BLOOD COUNT (AUTO) 6.4 K/uL (4.3-11.0)
--- NOTE | 2017-02-02 07:35 | NUR ---
MS RN OPENING NOTE PATIENT IS ALERT AND ORIENTED x4. NO PAIN AT THIS TIME. NO SOB OR DISTRESS NOTED. CALL LIGHT WITHIN REACH. SAFETY MEASURES IMPLEMENTED. ABLE TO COMMUNICATE NEEDS. IV INTACT AND PATENT NO REDNESS OR SWELLING NOTED. HOLDING COUMADIN FOR US GUIDED PARACENTESIS. WILL CONTINUE TO MONITOR
[2017-02-02 07:49] LABS: CALCIUM, SERUM 10.4 mg/dL (8.5-10.1); CARBON DIOXIDE 33 mmol/L (21-32); CHLORIDE 91 mmol/L (98-107); CREATININE 1.8 mg/dL (0.6-1.3); GLUCOSE 95 mg/dL (74-106); MAGNESIUM 2.2 mg/dL (1.8-2.4); PHOSPHORUS 2.6 mg/dL (2.5-4.9); POTASSIUM 4.2 mmol/L (3.5-5.1); SODIUM SERUM 129 mmol/L (136-145); UREA NITROGEN, BLOOD 67 mg/dL (7-18)
[2017-02-02 08:00] VITALS: BP 92/41
[2017-02-02] MEDS: METOPROLOL TARTRATE 25 MG TABLET PO SCH (09:00)
[2017-02-02] MEDS: PANTOPRAZOLE 40 MG TABLET.DR PO SCH (09:09)
--- NOTE | 2017-02-02 09:47 | NUR ---
MS RN NOTE HELD PATIENT'S BLOOD PRESSURE MEDICATION. BLOOD PRESSURE TOO LOW. WILL RECHECK AND MONITOR PATIENT
[2017-02-02 12:15] LABS: CALCITRIOL VIT D,1, 25 DIHYDRO 11.6 pg/mL (19.9-79.3)
[2017-02-02 13:15] LABS: PTH, INTACT 37 pg/mL (15-65)
--- NOTE | 2017-02-02 13:48 | NUR ---
AMA NOTE PATIENT IS ALERT AND ORIENTED x4. NO PAIN AT THIS TIME. NO SOB OR DISTRESS NOTED. ALL DUE MEDICATIONS GIVEN ORDERED. PATIENT REFUSED TO HAVE PICTURES DOCUMENTED UPON DISCHARGE. DISCHARGE PAPERWORK GIVEN PER PATIENT'S REQUEST. IV REMOVED, SKIN INTACT AND PATENT NO REDNESS OR SWELLING NOTED. PATIENT STATED" UNLESS THE DOCTOR LETS ME GO, I WILL LEAVE MYSELF. INCIDENT REPORT MADE. Unique Id: [id number]
== END 2017-02-02 13:15 | disposition left against medical advice (07) | DRG 280 ==
LOC: ER 21:11 → TELE 22:36 → MED 01-29 08:35
PROVIDERS: ADMIT Internal Medicine; ATTEND Internal Medicine
DX: I13.0 Hypertensive heart and chronic kidney disease with heart failure and stage 1 through stage 4 chronic kidney disease, or unspecified chronic kidney disease (principal); I50.43 Acute on chronic combined systolic (congestive) and diastolic (congestive) heart failure; I21.4 Non-ST elevation (NSTEMI) myocardial infarction; E87.1 Hypo-osmolality and hyponatremia; D68.59 Other primary thrombophilia; N17.9 Acute kidney failure, unspecified; R18.8 Other ascites; N18.9 Chronic kidney disease, unspecified; E87.5 Hyperkalemia; I25.10 Atherosclerotic heart disease of native coronary artery without angina pectoris; Z95.1 Presence of aortocoronary bypass graft; Z96.652 Presence of left artificial knee joint; E03.9 Hypothyroidism, unspecified; M10.9 Gout, unspecified; E78.5 Hyperlipidemia, unspecified; M19.90 Unspecified osteoarthritis, unspecified site; I87.2 Venous insufficiency (chronic) (peripheral); D63.8 Anemia in other chronic diseases classified elsewhere; I48.0 Paroxysmal atrial fibrillation; E83.52 Hypercalcemia; Z95.810 Presence of automatic (implantable) cardiac defibrillator; E86.0 Dehydration; I34.0 Nonrheumatic mitral (valve) insufficiency; I35.1 Nonrheumatic aortic (valve) insufficiency; I27.2 Other secondary pulmonary hypertension; E86.1 Hypovolemia; S80.12XA Contusion of left lower leg, initial encounter
CPT/HCPCS: 36415; 71010-TC; 76770-TC; 80048-TC; 80053-TC; 80061-TC; 80076-TC; 81000-TC; 82306; 82550-TC; 82570-TC; 82652; 82728-TC; 83540-TC; 83735-TC; 83880; 83970; 84100-TC; 84155; 84155-TC; 84165; 84300-TC; 84439-TC; 84443-TC; 84484-TC; 85025-TC; 85610-TC; 85730-TC; 87081-TC; 93307-TC; 94799-TC; 97001-TC; A4606; A6248; A6402; J0885; J1815; J1940; J3490; J7030; Z7610